=== PATIENT | female | born 1980 | race Caucasian/White ===

== ENCOUNTER 2018-04-01 22:56 | Observation (INO) | payer BC ==
--- OUTSIDE RECORDS SUMMARY | 2018-04-01 23:34 | XMS REPORT ---
:1980 External Reference #:[id number] Author Organization [facility] Address [address] [place] [address] [place] [address] Phone [phone] Care Team Providers Name Role Phone Carol Oconnor MD Primary Care Physician Unavailable Payers Type Date Identification Numbers Payment Provider Subscriber Commercial Policy Number: [id number] [facility] Dory Bunch PayID: [id number] [address] [place] [address] Problems Date Description Provider Status Onset: 04/28/2017 Generalized convulsive epilepsy Gregorio Hendrix M.D. Active Family History Date Family Member(s) Problem(s) Comments General Pulmonary Embolism (Pe) General Hypertension General Fibromyalgia Father Pulmonary Embolism (Pe) Social History Type Date Description Comments ETOH Use Denies alcohol use Recreational Drug Use Denies Drug Use Smoking Patient has never smoked Allergies, Adverse Reactions, Alerts Date Description Reaction Status Severity Comments 04/28/2017 NKDA active 12/02/2010 Strawberries active 05/26/2017 Enviromental active Medications Medication Date Status Form Strength Qnty SIG Indications Ordering Provider Levetiracetam 03/09/ Active Tablets 500mg 150tab 2 by G40.309 Gregorio 2017 s mouth in Lizeth Hendrix am and 3 in pm Mirena (52 MG) 04/28/ Active IUD 20mcg/24HR as Gregorio Post directed Lizeth Hendrix [employer]AT [employer]ER Thyroid 12/16/ Active Tablets 60mg 180tab 2 by E03.9 Elvin, Pawel s harish Medina MD daily. Acetaminophen / Active Tablets 500mg 2 tabs by Unknown Extra Strength 0000 mouth every 8 hours as needed for pain or fever Levetiracetam 12/15/ Hx Tablets 500mg 360tab 2 by G40.309 Gregorio 2017 - s mouth Lizeth Hendrix 03/09/ twice a 2018 day Levetiracetam 05/26/ Hx Tablets 750mg 60tabs Take 1 G40.309 Gregorio 2016 - Tablet By Lizeth Hendrix 2017 Twice A Day Levetiracetam 03/23/ Hx Tablets 500mg 180tab 1 po G40.309 Elvin 2017 - s twice a MD Carol 2016 Vital Signs Date Vital Result Comment 03/09/2018 Height 68 inches 5'8" Weight 297.00 lb Heart Rate 94 /min BP Systolic 124 mmHg BP Diastolic 98 mmHg Respiratory Rate 12 /min no respiratory difficulties Pain Level 0 O2 % BldC Oximetry 99 % BMI (Body Mass Index) 45.2 kg/m2 12/15/2017 Height 68 inches 5'8" Weight 303.12 lb Heart Rate 60 /min BP Systolic Sitting 126 mmHg BP Diastolic Sitting 68 mmHg Respiratory Rate 18 /min BMI (Body Mass Index) 46.1 kg/m2 10/27/2017 Height 68 inches 5'8" Weight 288.00 lb Heart Rate 101 /min BP Systolic Sitting 124 mmHg BP Diastolic Sitting 70 mmHg Respiratory Rate 16 /min Pain Level 0 O2 % BldC Oximetry 97 % Ra BMI (Body Mass Index) 43.8 kg/m2 07/28/2017 Height 68 inches 5'8" Weight 292.38 lb Heart Rate 90 /min BP Systolic Sitting 124 mmHg BP Diastolic Sitting 82 mmHg Respiratory Rate 16 /min Pain Level 0 BMI (Body Mass Index) 44.5 kg/m2 05/26/2017 Height 68 inches 5'8" Weight 287.00 lb Heart Rate 97 /min BP Systolic Sitting 116 mmHg BP Diastolic Sitting 96 mmHg Respiratory Rate 16 /min Pain Level 0 O2 % BldC Oximetry 98 % BMI (Body Mass Index) 43.6 kg/m2 04/28/2017 Height 68 inches 5'8" Weight 270.00 lb Heart Rate 94 /min BP Systolic Sitting 128 mmHg BP Diastolic Sitting 78 mmHg Respiratory Rate 20 /min Pain Level 0 BMI (Body Mass Index) 41.0 kg/m2 Results Description No Information Procedures Date CPT Code Description Status 05/05/2017 95753 EEG Recording Awake & Drowsy Completed Encounters Type Date Location Provider CPT E/M Dx Office Visit 12/15/2017 [place] Gregorio Hendrix, [address] G40.309 1:45p [facility] Office Visit 10/27/2017 [place] [address] G40.309 8:15a [facility] Office Visit 07/28/2017 [place] Hendrix, [address] G40.309 8:15a [facility] [address] G40.309 2:15p [facility] Office Visit 04/28/2017 [place] Hendrix, [address]81 G40.309 1:00p [facility] Plan of Care Future Appointment(s):07/13/2018 9:15 am - Gregorio Hendrix M.D. at [facility]03/09/2018 - Gregorio Hendrix M.D.G40.309 Gen idiopathic epilepsy, not intractable, w/o stat epiNew Medication:Levetiracetam 500 mgFollow up:Follow up in 4 months
--- NOTE | 2018-04-02 00:03 | ED ---
Seizure - HPI Summary HPI Summary: Patient here from [facility] ED for further evaluation of abnormal CT head with recommended MRI. CT head at [facility] positive for hypoattenuation at posterior superior left frontal lobe. Patient with history of seizures states she has had 2 seizures in the past week, with a head injury during seizure today. Patient has small hematoma to posterior head, complains of a mild headache. Patient denies any other symptoms or complaints. Denies vision change, N/V, focal deficits, fever, cough, sore throat, CP, SOB, N/V/D, abdominal pain, change in urine or BM. Denies any symptoms of recent illness, . Patient on Keppra 1000 MG in the a.m., 1500mg at p.m. recent increase in Keppra dose last months due to low normal serum Level. Patient states she was seizure- free for 17 years until a seizure last summer, another seizure this past November, and two this past week. States compliant with medications. Medical history is seizures, Hodgkin's lymphoma 2, clear since 2005. - History Of Current Complaint Chief Complaint: EDSeizure Time Seen by Provider: 04/01/18 23:20 Hx Obtained From: Patient Severity Of Seizure: Self-Limited Aggravating Factor(s): Nothing Alleviating Factor(s): Nothing Related History: Medication Compliant - Allergies/Home Medications Allergies/Adverse Reactions: Allergies Allergy/AdvReac Type Severity Reaction Status Date / Time STRAWBERRIES Allergy Rash/HIVES Uncoded 05/14/17 12:28 PMH/Surg Hx/FS Hx/Imm Hx Endocrine/Hematology History: Denies: Hx Anticoagulant Therapy, Hx Diabetes - PT DENIES ALL HISTORY OF DIABETES Cardiovascular History: Denies: Hx Cardiac Arrest, Hx Hypertension - ONLY DURING FIRST , Hx Pacemaker/ICD History: Denies: Hx Dialysis Sensory History: Denies: Hx Hearing Aid Neurological History: Denies: Hx CVA Psychiatric History: Denies: Hx Panic Disorder - Cancer History Cancer Type, Location and Year: HODGEKINS LYMPHOMA W/ STEM CELL TRANSPLANT Hx Chemotherapy: Yes Hx Radiation Therapy: Yes - Surgical History Surgery Procedure, Year, and Place: HODGEKINS LYMPHOMA - BIOPSIES & 2 POWER PORT ( REMOVED AT THIS TIME) Infectious Disease History: No Infectious Disease History: Denies: Traveled Outside the [place] in Last 30 Days - Social History Lives: With Family Alcohol Use: None Hx Substance Use: No Hx Tobacco Use: No Review of Systems Constitutional: Negative Eyes: Negative ENT: Negative Cardiovascular: Negative Respiratory: Negative Gastrointestinal: Negative Genitourinary: Negative Musculoskeletal: Negative Skin: Negative Positive: Headache Psychological: Normal All Other Systems Reviewed And Are Negative: Yes Physical Exam - Summary Physical Exam Summary: Patient alert and oriented. Small hematoma to the back of the head. No abrasions or lacerations noted. No indication of facial or oral trauma. Triage Information Reviewed: Yes Vital Signs On Initial Exam: Initial Vitals Temp Pulse Resp BP Pulse Ox 98.0 F 110 16 147/98 100 04/01/18 23:04 04/01/18 23:04 04/01/18 23:04 04/01/18 23:04 04/01/18 23:04 Vital Signs Reviewed: Yes Appearance: Positive: Well-Appearing Skin: Positive: Warm Head/Face: Positive: Normal Head/Face Inspection Eyes: Positive: Normal ENT: Positive: Normal ENT inspection Neck: Positive: Supple Respiratory/Lung Sounds: Positive: Clear to Auscultation Cardiovascular: Positive: Normal Abdomen Description: Positive: Nontender Musculoskeletal: Positive: Normal Neurological: Positive: Normal Psychiatric: Positive: Normal AVPU Assessment: Alert - Neil Coma Scale Best Eye Response: 4 - Spontaneous Best Motor Response: 6 - Obeys Commands Best Verbal Response: 5 - Oriented Coma Scale Total: 15 Diagnostics - Vital Signs Vital Signs Temp Pulse Resp BP Pulse Ox 04/01/18 23:04 98.0 F 110 16 147/98 100 - Laboratory Lab Statement: Any lab studies that have been ordered have been reviewed, and results considered in the medical decision making process. Course/Dx - Course Course Of Treatment: Patient here from [facility] ED for further evaluation of abnormal CT head with recommended MRI. CT head at [facility] positive for hypoattenuation at posterior superior left frontal lobe. Patient with history of seizures states she has had 2 seizures in the past week, with a head injury during seizure today. Patient has small hematoma to posterior head, complains of a mild headache. Patient denies any other symptoms or complaints. Denies vision change, N/V, focal deficits, fever, cough, sore throat, CP, SOB, N/V/D, abdominal pain, change in urine or BM. Denies any symptoms of recent illness, . Patient on Keppra 1000 MG in the a.m., 1500mg at p.m. recent increase in Keppra dose last months due to low normal serum Level. Patient states she was seizure-free for 17 years until a seizure last summer, another seizure this past November, and two this past week. States compliant with medications. Medical history is seizures, Hodgkin's lymphoma 2, clear since 2005. Patient alert and oriented. Small hematoma to the back of the head. No abrasions or lacerations noted. No indication of facial or oral trauma. Vital signs within normal limits. Labs from [facility] unremarkable. Abnormal CT head at [facility]. Admitted for OBS, MRI tomorrow - Diagnoses Provider Diagnoses: Abnormal CT of brain, Seizure Discharge - Sign-Out/Discharge Documenting (check all that apply): Patient Departure - Discharge Plan Condition: Stable Disposition: ADMITTED TO [facility] Referrals: Carol Oconnor MD [Primary Care Provider] - - Billing Disposition and Condition Condition: STABLE Disposition: Admitted to [facility]
[2018-04-02] MEDS ORDERED: Acetaminophen TAB* 325 MG PO PRN (02:23)
[2018-04-02 02:43] LABS: ABS Basophils 0.1 10^3/ul (0-0.2); ABS Eosinophils 0.1 10^3/ul (0-0.6); ABS Lymphocytes 2.1 10^3/ul (1.0-4.8); ABS Monocytes 0.5 10^3/ul (0-0.8); ABS Nucleated RBC 0 10^3/ul; Eosinophil % 1.1 % (0-6); Hematocrit 39 % (35-47); Hemoglobin 13.1 g/dl (12.0-16.0); Lymphocyte % 17.6 % (25-47); Mean Corpuscular HGB Conc 34 g/dl (31-36); Mean Corpuscular Hemoglobin 29 pg (27-31); Mean Corpuscular Volume 87 fL (80-97); Mean Platelet Volume 7.5 um3 (7.4-10.4); Nucleated Red Blood Cells % 0; Platelet Count 277 10^3/ul (150-450); Red Blood Count 4.44 10^6/ul (4.00-5.40); Red Cell Distribution Width 14 % (10.5-15); White Blood Count 11.7 10^3/ul (3.5-10.8)
[2018-04-02 03:02] LABS: EGFR Non-African American 99.6 (>60)
--- NOTE | 2018-04-02 04:43 | HP ---
Dr. Carol Oconnor; Dr. Gregorio Hendrix; Dr. Erich Montana HISTORY AND PHYSICAL: DATE OF ADMISSION: 04/02/18 TIME OF EVALUATION: 1:50 a.m. PRIMARY CARE PROVIDER: Dr. Carol Oconnor. NEUROLOGIST: Dr. Gregorio Hendrix. CONSULTING NEUROLOGIST: Dr. Erich Montana. CHIEF COMPLAINT: " I had a seizure." HISTORY OF PRESENT ILLNESS: Ms. Bunch is a 37-year-old lady with a past medical history of Hodgki n's disease, hypothyroidism, PTSD, sinusitis, arrhythmias, mitral regurgitation, tricuspid regurgitat ion, seizure disorder, who presented to the emergency room, transferred from [facility] after having a seizure at home. The patient has known seizure disorder, follows with Dr. Hendrix and her last visit was on 03/09/18. At that point, her last Keppra level was 10.3 and his recommendation was to increase her dose to 2000 m g in the morning and 1500 mg at night. The patient has been actually taking 1000 mg in the morning a nd 1500 mg at night. She states that she had a seizure last Wednesday and had another one tonight while preparing dinner. Dae bryan went to [facility] ED and there is report of a CT of the brain showing a right scalp hematoma with no evidence of fracture or intracranial hemorrhage, but there was a subtle hypoattenuation at the poste rosuperior left frontal lobe. An MRI was recommended. As [facility] does not have MRI services at [facility] time, the patient was transferred to our emergency room and will now be admitted for further workup . She has a mild headache now, but denies visual changes, dizziness, tingling, paresthesias, chest pain , shortness of breath, nausea, vomiting, diarrhea, abdominal pain, urinary symptoms. PAST MEDICAL HISTORY: 1. Hodgkin's disease. 2. Hypothyroidism. 3. PTSD. 4. Sinusitis. 5. Seizure disorder. MEDICATION LIST: 1. Mirena. 2. COMIC ARTIST Thyroid 60 mg 2 tablets p.o. daily. 3. Tylenol 500 mg 2 tablets p.o. q.8 hours as needed for pain or fever. 4. Keppra 1000 mg p.o. in the morning and 1500 mg p.o. in the evening. ALLERGIES: No known drug allergies, but she is allergic to STRAWBERRIES. FAMILY HISTORY: Pulmonary embolism, hypertension, fibromyalgia in her father. SOCIAL HISTORY: No history of alcohol, tobacco, or drug use. REVIEW OF SYSTEMS: A 14-point review of systems was performed and all the pertinent negative and pos itive findings are in the HPI. PHYSICAL EXAMINATION GENERAL: The patient is a young, morbidly obese lady, lying in the ED stretcher, in no acute distres s. VITAL SIGNS: Temperature 99.8, heart rate is 95, respiratory rate is 16, blood pressure 140/95, oxyg en saturation 99% on room air. HEENT: Pupils are equal. Moist mucous membranes. CHEST: Breath sounds present bilaterally with no added sounds. CVS: Normal S1, S2. Regular rate and rhythm. ABDOMEN: Obese. Bowel sounds are present. EXTREMITIES: No edema. DIAGNOSTIC STUDIES/LAB DATA: Laboratory tests done at [facility] include WBC of 13,000, hemoglobin of 13.5, hematocrit of 40, platelets of 300 with 77% neutrophils. Glucose 103, BUN 16, creatinine 0.9, sodium 138, potassium 4.1, chloride of 104, bicarb of 24, anion gap of 10, calcium is 9.3. Total pr otein 8.5 with a globulin of 4.9, alk phos of 119. Keppra level is pending. Please note that Navera is not working at the time of this admission. ASSESSMENT AND PLAN: Ms. Bunch is a 37-year-old lady with a past medical history of morbid obesit y with a BMI of 44, Hodgkin's disease, hypothyroidism, seizure disorder, who presents to the emergenc y room, transferred from [facility] due to two seizures this week with findings of hypoattenuation on C T of the brain. 1. Seizure disorder. The patient will be admitted to the telemetry floor. Dr. Montana will see her in consultation and the plan is for an MRI of the brain with and without contrast tomorrow morning. For now, he recommended increasing her Keppra to 1500 mg twice a day. The patient will be placed on neuro checks and seizure precautions. 2. Hypothyroidism. The patient will be continued on her thyroid medication. 3. DVT prophylaxis. The patient will receive subcutaneous heparin. 4. Code status is full. TIME SPENT: Approximately 45 minutes were spent with the patient interview, medical records review, physical examination to complete the admission, more than half of the time was spent [id number] wit h the patient and coordination of care. [id number]/[facility] #: [id number]
[2018-04-02] MEDS ORDERED: Heparin VIAL(*) 5000 UNITS/ML VIAL (FIVE THOUSAND) SUBCUT SCH (06:00)
[2018-04-02] MEDS ORDERED: Thyroid TAB* 60 MG PO SCH (09:00)
[2018-04-02] MEDS ORDERED: Docusate CAP* 100 MG PO SCH (09:00)
[2018-04-02] MEDS ORDERED: levETIRAcetam TAB* 500 MG PO SCH (09:00)
--- NOTE | 2018-04-02 12:06 | PN ---
Subjective Date of Service: 04/02/18 Interval History: Patient seen and examined at bedside. Denies fever, chills, shortness of breath , chest discomfort, N/V/D. Pt states that she misunderstood Dr. Hendrix's directions for increasing her Keppra, she states that she has enough at home to take the increased dosing. Pt doesn't want to stay for the weekend for an MRI on Wednesday. I explained that I am unable to order an outpatient MRI due to the requirement of prior authorization for outpatient MRIs. She would like to leave AMA today. She understands the risks involved with leaving AMA. Denies any further seizure activity. Tele: Sinus rhythm, rate 80-9's Family History: Unchanged from Admission Social History: Unchanged from Admission Past Medical History: Unchanged from Admission Objective Active Medications: Acetaminophen (Tylenol Tab*) 650 mg PO Q6H PRN Reason: pain/fever Docusate Sodium (Colace Cap*) 100 mg PO BID ABBIE Heparin Sodium (Porcine) (Heparin Vial(*)) 5,000 units SUBCUT Q8HR ABBIE Levetiracetam (Keppra Tab*) 1,500 mg PO BID ABBIE Thyroid (Thyroid Tab*) 120 mg PO DAILY ABBIE Vital Signs - 8 hr 04/02/18 04/02/18 04:07 07:48 Temperature 98.5 F 98.1 F Pulse Rate 91 85 Respiratory 20 12 Rate Blood Pressure 123/82 139/81 (mmHg) O2 Sat by Pulse 98 100 Oximetry Oxygen Devices in Use Now: None Appearance: NAD, sitting up in bed Ears/Nose/Mouth/Throat: Mucous Membranes Moist Respiratory: Symmetrical Chest Expansion and Respiratory Effort, Clear to Auscultation Cardiovascular: NL Sounds; No Murmurs; No JVD, RRR Abdominal: NL Sounds; No Tenderness; No Distention Extremities: No Edema Skin: No Rash or Ulcers Neurological: Alert and Oriented x 3, NL Muscle Strength and Tone Lines/Tubes/Other Access: Clean, Dry and Intact Peripheral IV - site benign Nutrition: Taking PO's Result Diagrams: 04/02/18 02:27 04/02/18 02:27 Assess/Plan/Problems-Billing Assessment: Ms. Bunch is a 37 yo female with PMH significant for morbid obesity, Hodgkin' s disease, hypothyroidism, and seizure disorder who presented to the emergency room with complaints of seizures this week and abnormal brain CT. - Patient Problems (1) Seizure disorder Code(s): G40.909 - EPILEPSY, UNSP, NOT INTRACTABLE, WITHOUT STATUS EPILEPTICUS SNOMED Code(s): 872063102 Comment: - 2 seizures in the past week - Neurology consult, input appreciated - MRI pending - Continue seizure precautions and Keppra (2) Hypothyroidism Code(s): E03.9 - HYPOTHYROIDISM, UNSPECIFIED SNOMED Code(s): 23154441 Comment: - Continue Thyroid (3) Morbid obesity Code(s): E66.01 - MORBID (SEVERE) OBESITY DUE TO EXCESS CALORIES SNOMED Code(s ): 492264796 Comment: - BMI ~ 45 (4) Hodgkin disease Code(s): C81.90 - HODGKIN LYMPHOMA, UNSPECIFIED, UNSPECIFIED SITE SNOMED Code( s): 397113941 Comment: - S/P chemo and radiation - In remission (5) DVT prophylaxis Code(s): XEM9636 - SNOMED Code(s): 782663815 Comment: - SQ heparin (6) Full code status Code(s): Z78.9 - OTHER SPECIFIED HEALTH STATUS SNOMED Code(s): 471357613 Status and Disposition: OBV. Discharge to home when medically stable. Pt is requesting to leave AMA today and not wait for MRI on Wednesday.
[2018-04-02 12:47] VITALS: BP 149/91
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
--- NOTE | 2018-04-02 22:05 | DS ---
CC: Dr. Gregorio Hendrix; Dr. Carol Oconnor. * DISCHARGE SUMMARY: DATE OF ADMISSION: 04/02/18 DATE OF DISCHARGE: 04/02/18, against medical advice. ATTENDING PHYSICIAN: Dr. Devin Ventura * (dictated by Kamini Cordero NP). PRIMARY CARE PROVIDER: Dr. Carol Oconnor. PRIMARY NEUROLOGIST: Dr. Gregorio Hendrix. PRIMARY DIAGNOSIS: Seizure disorder. SECONDARY DIAGNOSES: 1. Hypothyroidism. 2. Morbid obesity, BMI approximately 45. 3. Personal history of Hodgkin's disease. 4. Posttraumatic stress disorder. 5. Hypothyroidism. CONSULTATIONS WHILE IN THE HOSPITAL: Dr. Erich Montana with Neurology. STUDIES WHILE IN THE HOSPITAL: None. MEDICATIONS: Continued home medications: 1. Thyroid 120 mg oral daily. 2. Mirena. 3. Acetaminophen 1000 mg oral every 8 hours as needed for fever or pain. Changed home medications: 1. Keppra increased to 1500 mg oral twice daily. HISTORY OF PRESENT ILLNESS/HOSPITAL COURSE: Ms. Bunch is a 37-year-old female with past medical history significant for Hodgkin's disease, hypothyroidism, PTSD, sinusitis, cardiac arrhythmias, mitral regurgitation, tricuspid regurgitation, and a seizure disorder who presented to our emergency room as a transfer from the [facility] emergency room after having a seizure at home. The patient has a known seizure disorder, follows with Dr. Hendrix with Neurology, whose last visit was 03/09/18. At that point, the patient's Keppra level was low and it was recommended to increase her dose to 2000 mg in the morning and 1500 mg at night. The patient was actually taking 1000 mg in the morning 1500 mg at night. The patient had a seizure last Wednesday and another one while preparing dinner on the day of presentation. The patient went to the [facility] ER where she had a CT of her brain showing a right scalp hematoma with no evidence of fracture or intracranial hemorrhage; but there was a subtle hypoattenuation at the posterior left frontal lobe and an MRI was recommended. [facility] did not have MRI services at that time and the patient was transferred to [facility] for admission and further workup. While in the hospital, she remained seizure free. She had unremarkable labs. She was seen in consultation by Dr. Montana with Neurology who recommended the patient either stay the weekend for an MRI or have an outpatient MRI setup for Wednesday or Wednesday. He also recommended considering some side effects of a mood change, that an alternative antiepileptic medication be considered; but he decided to defer that to her primary neurologist. The patient did not want to wait until Wednesday for an MRI and outpatient MRI is unable to be scheduled due to the need for prior authorization with her insurance company and the need for it MRI to be scheduled by an outpatient provider. I discussed the risks of leaving against medical advice including worsening of her condition, permanent disability, or ; but the patient still wishes to leave against medical advice today. Ms. Bunch is stable and leaving against medical advice. Vital Signs are as follows: Temperature 97.6, heart rate 91, respiratory rate 12, O2 sat 98% on room air, and blood pressure 149/91. DISCHARGE PLAN: Ms. Bunch will be leaving against medical advice to go home. Activity as tolerated. She has been asked to not drive until cleared by Neurology. She will be on a regular diet. In regards to her seizure disorder, her Keppra has been increased to 1500 mg oral twice daily. She needs to be assisted in getting an MRI outpatient with and without contrast to further evaluate the area seen on her CT scan at [facility]. The patient has been asked to call Dr. Hendrix to set up a followup appointment and to have his office assist her in getting an MRI. The patient has also been asked to follow up with her primary care provider, Dr. Oconnor in the next week. The patient would benefit from services such as the [facility] where they can assist her with weight management. The patient has been asked to return to the emergency room for any shortness of breath, chest pain, return of seizure, or signs of a stroke such as one-sided weakness, trouble speaking, or facial drooping. This is a summarized report of a complex medical history and hospital stay. For further details please see the entire medical record. TIME SPENT: Time for this discharge is approximately 50 minutes, greater than half of that was spent with the patient and her discussing discharge plans and instructions and discussing the risks of leaving against medical advice. CONDITION ON DISCHARGE: Stable, but the patient is leaving against medical advice. Reviewed by EMMETT TOUSSAINT 04/06/18 1755 [id number]/[facility] #: [id number] EMILY
== END 2018-04-02 13:11 | disposition left against medical advice (07) ==
LOC: ED 22:56 → MEDTELE 04-02 02:19 → MERGE 04-02 02:19
PROVIDERS: ADMIT Internal Medicine; ATTEND Internal Medicine
DX: G40.909 Epilepsy, unspecified, not intractable, without status epilepticus (principal); E03.9 Hypothyroidism, unspecified; E66.01 Morbid (severe) obesity due to excess calories; Z68.42 Body mass index [BMI] 45.0-49.9, adult; Z85.71 Personal history of Hodgkin lymphoma; F43.10 Post-traumatic stress disorder, unspecified; J32.9 Chronic sinusitis, unspecified
CPT/HCPCS: 36415; 80053; 80177; 84702; 85025; 99284; A9270-GY; G0378; J1644

== ENCOUNTER 2018-04-17 13:56 | Emergency (ER) | payer BC ==
[2018-04-17] MEDS ORDERED: Amoxicillin PO (*) 500 MG CAP PO ONE (15:04)
[2018-04-17 15:08] LABS: ABS Basophils 0.1 10^3/ul (0-0.2); ABS Eosinophils 0.1 10^3/ul (0-0.6); ABS Lymphocytes 1.5 10^3/ul (1.0-4.8); ABS Monocytes 0.4 10^3/ul (0-0.8); ABS Neutrophils 10.4 10^3/ul (1.5-7.7); ABS Nucleated RBC 0 10^3/ul; Eosinophil % 0.6 % (0-6); Hematocrit 40 % (35-47); Hemoglobin 13.3 g/dl (12.0-16.0); Lymphocyte % 11.8 % (25-47); Mean Corpuscular HGB Conc 33 g/dl (31-36); Mean Corpuscular Hemoglobin 29 pg (27-31); Mean Corpuscular Volume 89 fL (80-97); Mean Platelet Volume 7.4 um3 (7.4-10.4); Nucleated Red Blood Cells % 0.1; Platelet Count 287 10^3/ul (150-450); Red Blood Count 4.52 10^6/ul (4.00-5.40); Red Cell Distribution Width 14 % (10.5-15); White Blood Count 12.4 10^3/ul (3.5-10.8)
[2018-04-17 15:14] LABS: INR 0.95 (0.77-1.02)
[2018-04-17 15:24] LABS: EGFR Non-African American 81.2 (>60)
--- NOTE | 2018-04-17 15:58 | ED ---
Neurological HPI - HPI Summary HPI Summary: This is scribe Ricardo Cifuentes documenting for attending Ray Wyman. A 37 y/o female presents to ED c/o seizure episode in the morning. In the ED room ,the patient has a pulse of 97 BPM, O2 saturation of 97% and blood pressure of 129/81. As per triage, "pt states has a history of epilepsy and was seen a few weeks ago for seizures. states today had another. pt states seizures restarted last year after years of not having any. pt on keppra 1500mg po qam and qpm". According to the patient, she had a witnessed seizure episode around 1100 by her . She stated that she has a PMHx of epilepsy and suffer from chronic seizures which last about a minute. Her last seizure was the week of 10/2017 where she experienced two. Before that, it was in November and then before that it was in February of 2017. She noted that she has sleep apnea (depends on the day), as it takes her 5-6 hours to sleep. Patient denies any recent ETOH or sickness. She stated that she consistent takes her medications (Keppra 2x/day) and has never missed any doses. As per , the patient had a seizure episode which wasn't as bad as the last times. It lasted about a minute around 1100 and the patient has no fevers. It was noted that her neurologist adjusted her Keppra (increased) since the last time being in ER. The patient did have other medications that was started in high school, but she was off Keppra in 2003 and started back on last year. It was a while with being on no medications. She stated that her right ear is bothering here as if it feels like there is fluid inside. Patient denies any dentalpain, however, she bit her tongue/lip during the episode. Patient takes Keppra at 0730 and 1930. Pt has seasonal allergies and is not allergic to antibiotics. Neurologist is Dr. Hendrix ( appointment in 05/2018, has seen since 01/2018). I, Dr. Wyman, personally performed the services described in this documentation as scribed in my presence and it is both accurate and complete. - History of Current Complaint Chief Complaint: EDSeizure Stated Complaint: SEIZURE Time Seen by Provider: 04/17/18 14:29 Hx Obtained From: Patient, Family/Le[employer]s I Assembler - Onset/Duration: Sudden Onset, Started hours ago, Resolved Timing: Intermittent Episodes Lasting: - 1 min Number of Seizures: 1 Pain Intensity: 0 Pain Scale Used: 0-10 Numeric Syncope Context: Witnessed - Frequency: Episodes x___ - 1. See HPI Seizure Character: Generalized Aggravating: Nothing Alleviating: Nothing Associated Signs and Symptoms: Positive: Seizure - Additional Pertinent History Primary Care Physician: KIANA - Allergy/Home Medications Allergies/Adverse Reactions: Allergies Allergy/AdvReac Type Severity Reaction Status Date / Time STRAWBERRIES Allergy Rash/HIVES Uncoded 04/17/18 14:29 PMH/Surg Hx/FS Hx/Imm Hx Endocrine/Hematology History: Denies: Hx Anticoagulant Therapy, Hx Diabetes Cardiovascular History: Denies: Hx Cardiac Arrest, Hx Hypertension, Hx Pacemaker/ICD History: Denies: Hx Dialysis, Hx Renal Disease Sensory History: Reports: Hx Contacts or Glasses Denies: Hx Hearing Aid Opthamlomology History: Reports: Hx Contacts or Glasses Neurological History: Denies: Hx CVA Psychiatric History: Denies: Hx Panic Disorder - Cancer History Cancer Type, Location and Year: [facility] LYMPHOMA W/ STEM CELL TRANSPLANT Hx Chemotherapy: Yes Hx Radiation Therapy: Yes - Surgical History Surgery Procedure, Year, and Place: [facility] LYMPHOMA - BIOPSIES & 2 POWER PORT ( REMOVED AT THIS TIME) Infectious Disease History: No Infectious Disease History: Denies: Traveled Outside the [place] in Last 30 Days - Family History Known Family History: Negative: Diabetes - Social History Alcohol Use: None Hx Substance Use: No Substance Use Type: Reports: None Hx Tobacco Use: No Smoking Status (MU): Never Smoked Tobacco Review of Systems Negative: Fever, Chills Negative: Erythema Positive: Ear Ache. Negative: Sore Throat Negative: Chest Pain Negative: Shortness Of Breath, Cough Negative: Abdominal Pain, Vomiting, Nausea Negative: dysuria, hematuria Negative: Myalgia, Edema Negative: Rash Neurological: Other - NEGATIVE: Dizziness; POSITIVE: Seizure All Other Systems Reviewed And Are Negative: Yes Physical Exam - Summary Physical Exam Summary: Constitutional: Well-developed, Well-nourished, Alert. (-) Distressed Skin: Warm, Dry HENT: Normocephalic; Atraumatic. Erythema over the right tympanic membrane. Eyes: Conjunctiva normal Neck: Musculoskeletal ROM normal neck. (-) JVD, (-) Stridor, (-) Tracheal deviation Cardio: Rhythm regular, rate normal, Heart sounds normal; Intact distal pulses; The pedal pulses are 2+ and symmetric. Radial pulses are 2+ and symmetric. (-) Murmur Pulmonary/Chest wall: Effort normal. (-) Respiratory distress, (-) Wheezes, (-) Rales Abd: Soft, (-) epigastric tenderness, (-) Distension, (-) Guarding, (-) Rebound Musculoskeletal: (-) Edema Lymph: (-) Cervical adenopathy Neuro: Alert, Oriented x3 Psych: Mood and affect Normal Triage Information Reviewed: Yes Vital Signs On Initial Exam: Initial Vitals Temp Pulse Resp BP Pulse Ox 98.2 F 101 18 138/90 96 04/17/18 14:12 04/17/18 14:12 04/17/18 14:12 04/17/18 14:12 04/17/18 14:12 Vital Signs Reviewed: Yes Diagnostics - Vital Signs Vital Signs Temp Pulse Resp BP Pulse Ox 04/17/18 14:51 92 23 129/81 97 04/17/18 14:25 100 16 137/75 97 04/17/18 14:20 11 04/17/18 14:12 98.2 F 101 18 138/90 96 - Laboratory Lab Results: Lab Results 04/17/18 04/17/18 04/17/18 Range/Units 14:54 14:54 14:54 WBC 12.4 H (3.5-10.8) 10^3/ul RBC 4.52 (4.00-5.40) 10^6/ul Hgb 13.3 (12.0-16.0) g/dl Hct 40 (35-47) % MCV 89 (80-97) fL MCH 29 (27-31) pg MCHC 33 (31-36) g/dl RDW 14 (10.5-15) % Plt Count 287 (150-450) 10^3/ul MPV 7.4 (7.4-10.4) um3 Neut % (Auto) 83.7 H (38-83) % Lymph % (Auto) 11.8 L (25-47) % Eagle % (Auto) 3.1 (0-7) % Eos % (Auto) 0.6 (0-6) % Baso % (Auto) 0.8 (0-2) % Absolute Neuts (auto) 10.4 H (1.5-7.7) 10^3/ul Absolute Lymphs (auto) 1.5 (1.0-4.8) 10^3/ul Absolute Monos (auto) 0.4 (0-0.8) 10^3/ul Absolute Eos (auto) 0.1 (0-0.6) 10^3/ul Absolute Basos (auto) 0.1 (0-0.2) 10^3/ul Absolute Nucleated RBC 0 10^3/ul Nucleated RBC % 0.1 INR (Anticoag Therapy) 0.95 (0.77-1.02) Sodium 138 (135-145) mmol/L Potassium 4.2 (3.5-5.0) mmol/L Chloride 106 (101-111) mmol/L Carbon Dioxide 25 (22-32) mmol/L Anion Gap 7 (2-11) mmol/L BUN 12 (6-24) mg/dL Creatinine 0.80 (0.51-0.95) mg/dL Est GFR ( Amer) 98.2 (>60) Est GFR (Non-Af Amer) 81.2 (>60) BUN/Creatinine Ratio 15.0 (8-20) Glucose 99 (70-100) mg/dL Lactic Acid (0.5-2.0) mmol/L Calcium 9.3 (8.6-10.3) mg/dL Magnesium 2.3 (1.9-2.7) mg/dL Total Bilirubin 0.40 (0.2-1.0) mg/dL AST 16 (13-39) U/L ALT 17 (7-52) U/L Alkaline Phosphatase 97 (34-104) U/L Total Protein 7.7 (6.4-8.9) g/dL Albumin 4.1 (3.2-5.2) g/dL Globulin 3.6 (2-4) g/dL Albumin/Globulin Ratio 1.1 (1-3) 04/17/18 Range/Units 14:54 WBC (3.5-10.8) 10^3/ul RBC (4.00-5.40) 10^6/ul Hgb (12.0-16.0) g/dl Hct (35-47) % MCV (80-97) fL MCH (27-31) pg MCHC (31-36) g/dl RDW (10.5-15) % Plt Count (150-450) 10^3/ul MPV (7.4-10.4) um3 Neut % (Auto) (38-83) % Lymph % (Auto) (25-47) % Eagle % (Auto) (0-7) % Eos % (Auto) (0-6) % Baso % (Auto) (0-2) % Absolute Neuts (auto) (1.5-7.7) 10^3/ul Absolute Lymphs (auto) (1.0-4.8) 10^3/ul Absolute Monos (auto) (0-0.8) 10^3/ul Absolute Eos (auto) (0-0.6) 10^3/ul Absolute Basos (auto) (0-0.2) 10^3/ul Absolute Nucleated RBC 10^3/ul Nucleated RBC % INR (Anticoag Therapy) (0.77-1.02) Sodium (135-145) mmol/L Potassium (3.5-5.0) mmol/L Chloride (101-111) mmol/L Carbon Dioxide (22-32) mmol/L Anion Gap (2-11) mmol/L BUN (6-24) mg/dL Creatinine (0.51-0.95) mg/dL Est GFR ( Amer) (>60) Est GFR (Non-Af Amer) (>60) BUN/Creatinine Ratio (8-20) Glucose (70-100) mg/dL Lactic Acid 1.0 (0.5-2.0) mmol/L Calcium (8.6-10.3) mg/dL Magnesium (1.9-2.7) mg/dL Total Bilirubin (0.2-1.0) mg/dL AST (13-39) U/L ALT (7-52) U/L Alkaline Phosphatase (34-104) U/L Total Protein (6.4-8.9) g/dL Albumin (3.2-5.2) g/dL Globulin (2-4) g/dL Albumin/Globulin Ratio (1-3) Result Diagrams: 04/17/18 14:54 04/17/18 14:54 Lab Statement: Any lab studies that have been ordered have been reviewed, and results considered in the medical decision making process. - EKG 1438 Cardiac Rate: NL - 90 BPM. EKG Rhythm: Sinus Rhythm Course/Dx - Course Course Of Treatment: A 37 y/o female presents to ED c/o seizure episode in the morning. In the ED room ,the patient has a pulse of 97 BPM, O2 saturation of 97 % and blood pressure of 129/81. An EKG revealed a NSR of 90 BPM. In the ED course, the patient recieved Amoxicillin and Keppra. Patient care was discussed with Dr. Burgess, who recommends patient take 2 g (two grams) of Keppra tonight and call Dr. Hendrix tomorrow for follow up. Patient will be discharged with a diagnosis of right otitis media and breakthrough seizure. Patient is to follow up with Dr. Hendrix tomorrow. Patient is agreeable with this plan. - Diagnoses Provider Diagnoses: Breakthrough seizure, Right otitis media - Physician Notifications Discussed Care Of Patient With: Earl Burgess Time Discussed With Above Provider: 16:09 Instructed by Provider To: Other - Recommends patient take 2 g (two grams) of Keppra tonight and call Dr. Hendrix tomorrow for follow up. Discharge - Sign-Out/Discharge Documenting (check all that apply): Patient Departure - DISCHARGE - Discharge Plan Condition: Stable Disposition: HOME Prescriptions: Amoxicillin PO (*) [Amoxicillin 500 MG CAP*] 500 mg PO BID #14 cap Patient Education Materials: Earache (ED), Epilepsy (ED) Referrals: Carol Oconnor MD [Primary Care Provider] - Lola Hendrix MD [Medical Doctor] - 1 Day Additional Instructions: FOLLOW UP WITH DR. HENDRIX TOMORROW. TAKE AMOXICILLIN PRESCRIBED. RETURN TO ED FOR ANY NEW OR WORSENING SYMPTOMS.
[2018-04-17] MEDS ORDERED: levETIRAcetam TAB* 500 MG PO ONE (16:11)
[2018-04-17 17:13] VITALS: BP 112/79
== END 2018-04-17 17:10 | disposition home or self-care (01) ==
LOC: ED 13:56
DX: G40.909 Epilepsy, unspecified, not intractable, without status epilepticus (principal); H66.91 Otitis media, unspecified, right ear; Z85.72 Personal history of non-Hodgkin lymphomas; H92.09 Otalgia, unspecified ear
CPT/HCPCS: 36415; 80053; 80177; 83605; 83735; 85025; 85610; 93005; 99282; A9270-GY

== ENCOUNTER 2019-06-11 10:07 | Emergency (ER) | payer BC, OTHER ==
[2019-06-11 11:00] VITALS: BP 149/92
[2019-06-11] MEDS ORDERED: Acetaminophen TAB* 325 MG PO ONE (11:25)
[2019-06-11 11:35] LABS: Influenza A Molecular NEGATIVE (Negative); Influenza B Molecular NEGATIVE (Negative)
--- NOTE | 2019-06-11 11:37 | UC ---
FLU HPI - HPI Summary HPI Summary: Pt presents with c/o of fever, chills, cough, nasal congestion, occasional dysuria and fatigue X 7 days. - History of Current Complaint Chief Complaint: UCRespiratory Stated Complaint: FEVER, COUGH, CHEST CONGESTION Time Seen by Provider: 06/11/19 10:54 Hx Obtained From: Patient ?: No Onset/Duration: Gradual Onset, Lasting Days, Still Present Severity Currently: Mild Severity Initially: Mild Pain Intensity: 3 Associated Signs & Symptoms: Positive: Fever, Myalgia, Cough, Nasal Congestion Related Hx: Possible Flu/Infectious Exposure - Risk Factors Influenza Risk Factors: Negative - Allergy/Home Medications Allergies/Adverse Reactions: Allergies Allergy/AdvReac Type Severity Reaction Status Date / Time amoxicillin Allergy Rash Verified 06/11/19 10:52 strawberry Allergy Hives, Rash Verified 06/11/19 10:52 Home Medications: Home Medications Acetaminophen [Acetaminophen Extra Strength] 1,000 mg PO Q6H PRN 06/11/19 [ History Confirmed 06/11/19] Ibuprofen TAB* [Advil TAB*] 200 mg PO Q6H PRN 06/11/19 [History Confirmed ] lamoTRIgine TAB(*) [Lamictal TAB(*)] 200 mg PO BID 06/11/19 [History Confirmed 06/11/19] levETIRAcetam TAB* [Keppra TAB*] 2,000 mg PO QPM 06/11/19 [History Confirmed ] levETIRAcetam [Levetiracetam] 1,500 mg PO QAM 06/11/19 [History Confirmed ] PMH/Surg Hx/FS Hx/Imm Hx Previously Healthy: Yes Cancer History: Other - non hodgkins lymphoma over 10 years ago Other History Of: Negative For: Anticoagulant Therapy - Surgical History Surgical History: Yes Surgery Procedure, Year, and Place: Lymphoma Biopsies and Port Implants and Removals - Family History Known Family History: Negative: Diabetes - Social History Occupation: Employed Full-time Lives: With Family Alcohol Use: None Substance Use Type: None Smoking Status (MU): Never Smoked Tobacco Have You Smoked in the Last Year: No - Immunization History Vaccination Up to Date: Yes Review of Systems All Other Systems Reviewed And Are Negative: Yes Constitutional: Positive: Fever, Chills, Fatigue Skin: Positive: Negative Eyes: Positive: Negative ENT: Positive: Sinus Congestion, Sinus Pain/Tenderness Respiratory: Positive: Cough Cardiovascular: Positive: Negative Gastrointestinal: Positive: Negative Genitourinary: Positive: Negative Motor: Positive: Negative Neurovascular: Positive: Negative Musculoskeletal: Positive: Myalgia Neurological: Positive: Negative Psychological: Positive: Anxious Is Patient Immunocompromised?: No Physical Exam Triage Information Reviewed: Yes Appearance: Ill-Appearing Vital Signs: Initial Vital Signs Temp 101.2 F 06/11/19 10:50 Pulse 118 06/11/19 10:50 Resp 18 06/11/19 10:50 BP 149/92 06/11/19 10:50 Pulse Ox 98 06/11/19 10:50 Vital Signs Reviewed: Yes Eye Exam: Normal ENT: Positive: Nasal congestion, Sinus tenderness Dental Exam: Normal Neck exam: Normal Respiratory Exam: Normal Cardiovascular Exam: Normal Musculoskeletal Exam: Normal Neurological Exam: Normal Skin Exam: Normal Flu Course/Dx - Differential Dx/Diagnosis Differential Diagnosis/HQI/PQRI: Bronchitis, Influenza, Upper Respiratory Infection Provider Diagnosis: Sinusitis Discharge ED - Sign-Out/Discharge Documenting (check all that apply): Patient Departure All imaging exams completed and their final reports reviewed: No Studies - Discharge Plan Condition: Stable Disposition: HOME Prescriptions: Clarithromycin TAB* [Biaxin 500 MG TAB*] 500 mg PO Q12H #20 tab Patient Education Materials: Sinusitis (ED), Fever in Adults (ED) Referrals: Carol Oconnor MD [Primary Care Provider] - As Soon As Possible Rosalba Esqueda MD [Medical Doctor] - If Needed - Billing Disposition and Condition Condition: STABLE Disposition: Home
== END 2019-06-11 12:13 | disposition home or self-care (01) ==
LOC: UCCORT 10:07
DX: J32.9 Chronic sinusitis, unspecified (principal); R53.83 Other fatigue; M79.10 Myalgia, unspecified site; R30.0 Dysuria; Z88.0 Allergy status to penicillin; Z91.018 Allergy to other foods
CPT/HCPCS: 81003; 87086; 87651; 99212; A9270-GY; G0463